=== PATIENT | female | born 1990 | race Caucasian/White ===

== ENCOUNTER 2016-09-05 08:58 | Emergency (ER) | payer OTHER ==
--- NOTE | 2016-09-05 09:16 | EDPHY ---
H & P Time Seen by Provider: 09/05/16 09:02 HPI/ROS: CHIEF COMPLAINT: Silvana HPI: The patient is a 26-year-old female with a history silvana and blindness. She presents to the emergency department on advice of her therapist. Apparently the patient recently moved to [place] and her primary psychiatrist is located in [place]. She tells me that her psychiatrist has been trying to wean her off the Geodon and this has caused her to experience worsening symptoms of silvana including inability to sleep for more than 20 minutes at a time over the last several days. She spoke to her therapist recommended that she present to the emergency department. The patient denies any thoughts of harm to self or others. She is not abusing any medication. REVIEW OF SYSTEMS: Aside from elements discussed in the HPI, a comprehensive 10-point review of systems was reviewed and is negative. PMH: Blindness. SOCIAL HISTORY: Works for [employer]. Denies alcohol or drug abuse. PHYSICAL EXAM: General:Patient is alert, in no acute distress. 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 Neck: Normal inspection. Full range of motion. Respiratory:No respiratory distress. Breath sounds normal bilaterally. Cardiovascular: Regular rate and rhythm. Strong peripheral pulses. Normal cap refill. Abdomen:The abdomen is nontender to palpation. There are no peritoneal signs. There are normal bowel sounds. Back: Normal to inspection. No tenderness to palpation. Skin: Normal color. No rash. Warm and dry. Extremities: Normal appearance. Full range of motion. Neuro: Oriented x3. Normal motor function. Normal sensory function. Psychiatric: Normal affect, pleasant. Smoking Status: Never smoked Constitutional: Initial Vital Signs Temperature (C) 36.6 C 09/05/16 09:09 Heart Rate 91 09/05/16 09:09 Respiratory Rate 20 09/05/16 09:09 Blood Pressure 134/77 H 09/05/16 09:09 O2 Sat (%) 97 09/05/16 09:09 O2 Delivery Mode Room Air Allergies/Adverse Reactions: No Known Allergies Allergy (Unverified 09/05/16 09:08) Home Medications: Medication Instructions Recorded Geodon 40MG (*) 09/05/16 Tromax 09/05/16 Xanax 09/05/16 Zofran 09/05/16 MDM/Departure - [facility] ED Course/Re-evaluation: I spoke with our case managers, Candace, who referred me to the [facility] line. I spoke with someone at the [facility] and gave them background on the patient - they have assured me that a clinician will meet the patient at that facility if we send her by cab. At this point, I do not think the patient is a danger to her self or others and she does not meet criteria for an M1 hold, so I think outpatient management would be optimal. I discussed this with the patient and she is comfortable with the plan. - Depart Disposition: Home, Routine, Self-Care Clinical Impression: Silvana Condition: Good Instructions: Additional Information Additional Instructions: Go directly to [facility] at [address] [place] [address] in [place]. Referrals: CANDICE MONTES [Other] - As per Instructions Blanca Santos MD [Medical Doctor] - As per Instructions
[2016-09-05 10:03] VITALS: BP 109/64; PULSE 88; RESP 18; TEMP 98.1; O2SAT 95
== END 2016-09-05 10:02 | disposition home or self-care (01) ==
LOC: CED 08:58
DX: F30.9 Manic episode, unspecified (principal)

== ENCOUNTER 2017-12-28 19:37 | Inpatient (IN) | payer MEDICAID, OTHER ==
--- NOTE | 2017-12-28 19:45 | EDPHY ---
H & P Stated Complaint: SI (Blind) Source: Patient - Personal History LMP (Females 10-55): 1-7 Days Ago Current Tetanus/Diphtheria Vaccine: Unsure Current Tetanus Diphtheria and Acellular Pertussis (TDAP): Unsure - Medical/Surgical History Hx Asthma: No Hx Chronic Respiratory Disease: No Hx Diabetes: No Hx Cardiac Disease: No Hx Renal Disease: No Hx Cirrhosis: No Hx Alcoholism: No Hx HIV/AIDS: No Hx Splenectomy or Spleen Trauma: No Other PMH: Depression/Bipolar/PDF/ Premature 24wks/Several eye surgerys No MRI PDF ligation - Social History Smoking Status: Never smoked Time Seen by Provider: 12/28/17 19:45 HPI/ROS: HPI CHIEF COMPLAINT: Suicidal ideation HISTORY OF PRESENT ILLNESS: This is a very pleasant 27-year-old female she is legally blind, she presents emergency room feeling further depression and suicidal the patient states that she is feeling more depressed recently. Suicidal ideation. Denies any ingestion. She presents emergency room by private vehicle. Past Medical History: Depression, previous suicidal ideation, blind Past Surgical History: No recent surgery Social History: Denies drugs alcohol tobacco Family History: Noncontributory ROS REVIEW OF SYSTEMS: 10 Systems were reviewed and negative with the exception of the elements mentioned in the history of present illness. Exam Constitutional triage nursing summary reviewed, vital signs reviewed, awake/ alert. Eyes blind. HENT normal inspection, atraumatic, moist mucus membranes, no epistaxis, neck supple/ no meningismus, no raccoon eyes. Respiratory clear to auscultation bilaterally, normal breath sounds, no respiratory distress, no wheezing. Cardiovascular rate normal, regular rhythm, no murmur, no edema, distal pulses normal. Gastrointestinal soft, non-tender, no rebound, no guarding, normal bowel sounds, no distension, no pulsatile mass. Genitourinary no CVA tenderness. Musculoskeletal no midline vertebral tenderness, full range of motion, no calf swelling, no tenderness of extremities, no meningismus, good pulses, neurovascularly intact. Skin pink, warm, & dry, no rash, skin atraumatic. Neurologic awake, alert and oriented x 3, AAOx3, moves all 4 extremities equally, motor intact, sensory intact, CN II-XII intact, normal cerebellar, normal vision, normal speech. Psychiatric depressed, flat affect, suicidal Heme/Lymph/Immune no lymphadenopathy. Differential Diagnosis: Includes but is not limited to in a particular order mood disorder, bipolar disorder, depression, suicidal ideation Medical Decision Making: Plan for this patient she is here endorsing suicidal ideation, worsening depressed and she be placed on M1 hold by myself. Patient need mental health evaluation after medical clearance. Blood draw will be obtained. Re-evaluation: 1954: Time of M1 hold. Placed by myself. Reason for placement suicidal ideation underlying depression. 2239: Patient signed over to Dr. Green, m1 hold, si, needs eval still. (Pierre Baker) Constitutional: Initial Vital Signs Temperature (C) 36.8 C 12/28/17 19:38 Heart Rate 117 H 12/28/17 19:38 Respiratory Rate 16 12/28/17 19:38 Blood Pressure 150/96 H 12/28/17 19:38 O2 Sat (%) 96 12/28/17 19:38 O2 Delivery Mode Room Air Allergies/Adverse Reactions: No Known Allergies Allergy (Unverified 09/05/16 09:08) Home Medications: Medication Instructions Recorded Geodon 40MG (*) 09/05/16 Tromax 09/05/16 Xanax 09/05/16 Zofran 09/05/16 Medical Decision Making Other Provider: [address] Baker pending mental health evaluation. 07 patient signed out to Dr. Shoemaker pending mental health evaluation. There been no issues during my care this patient overnight. (Silver Green) - Data Points Laboratory Results: Laboratory Results 12/28/17 21:00 12/28/17 21:00 12/28/17 12/28/17 12/28/17 21:30 21:00 21:00 WBC RBC Hgb Hct MCV MCH MCHC RDW Plt Count MPV Neut % (Auto) Lymph % (Auto) [place] % (Auto) Eos % (Auto) Baso % (Auto) Nucleat RBC Rel Count Absolute Neuts (auto) Absolute Lymphs (auto) Absolute Monos (auto) Absolute Eos (auto) Absolute Basos (auto) Absolute Nucleated RBC Immature Gran % Immature Gran # Sodium 137 mEq/L mEq/L (135-145) Potassium 3.6 mEq/L mEq/L (3.3-5.0) Chloride 102 mEq/L mEq/L (97-110) Carbon Dioxide 24 mEq/l mEq/l (22-31) Anion Gap 11 mEq/L mEq/L (8-16) BUN 12 mg/dL mg/dL (7-23) Creatinine 1.0 mg/dL mg/dL (0.6-1.0) Estimated GFR > 60 Glucose 85 mg/dL mg/dL (70-100) Calcium 10.6 mg/dL H mg/dL (8.5-10.4) Beta HCG, Qual NEGATIVE Urine Opiates Screen NEGATIVE (NEGATIVE) Urine Barbiturates NEGATIVE (NEGATIVE) Ur Phencyclidine Scrn NEGATIVE (NEGATIVE) Ur Amphetamine Screen NEGATIVE (NEGATIVE) U Benzodiazepines Scrn NEGATIVE (NEGATIVE) [place] 0.4 mEq/L L mEq/L (0.6-1.2) Urine Cocaine Screen NEGATIVE (NEGATIVE) U Marijuana (THC) Screen NEGATIVE (NEGATIVE) Ethyl Alcohol < 10 mg/dL mg/dL (0-10) 12/28/17 21:00 WBC 12.14 10^3/uL H 10^3/uL (3.80-9.50) RBC 4.88 10^6/uL 10^6/uL (4.18-5.33) Hgb 14.6 g/dL g/dL (12.6-16.3) Hct 42.8 % % (38.0-47.0) MCV 87.7 fL fL (81.5-99.8) MCH 29.9 pg pg (27.9-34.1) MCHC 34.1 g/dL g/dL (32.4-36.7) RDW 12.5 % % (11.5-15.2) Plt Count 311 10^3/uL 10^3/uL (150-400) MPV 9.8 fL fL (8.7-11.7) Neut % (Auto) 66.7 % % (39.3-74.2) Lymph % (Auto) 22.7 % % (15.0-45.0) [place] % (Auto) 9.0 % % (4.5-13.0) Eos % (Auto) 0.9 % % (0.6-7.6) Baso % (Auto) 0.5 % % (0.3-1.7) Nucleat RBC Rel Count 0.0 % % (0.0-0.2) Absolute Neuts (auto) 8.09 10^3/uL H 10^3/uL (1.70-6.50) Absolute Lymphs (auto) 2.76 10^3/uL 10^3/uL (1.00-3.00) Absolute Monos (auto) 1.09 10^3/uL H 10^3/uL (0.30-0.80) Absolute Eos (auto) 0.11 10^3/uL 10^3/uL (0.03-0.40) Absolute Basos (auto) 0.06 10^3/uL 10^3/uL (0.02-0.10) Absolute Nucleated RBC 0.00 10^3/uL 10^3/uL (0-0.01) Immature Gran % 0.2 % % (0.0-1.1) Immature Gran # 0.03 10^3/uL 10^3/uL (0.00-0.10) Sodium Potassium Chloride Carbon Dioxide Anion Gap BUN Creatinine Estimated GFR Glucose Calcium Beta HCG, Qual Urine Opiates Screen Urine Barbiturates Ur Phencyclidine Scrn Ur Amphetamine Screen U Benzodiazepines Scrn [place] Urine Cocaine Screen U Marijuana (THC) Screen Ethyl Alcohol Medications Given: Fluoxetine HCl (Prozac) 10 mg PO [facility] Stop: 06/27/18 00:14 Last Admin: 12/29/17 00:24 Dose: 10 mg Lamotrigine (Lamictal) 150 mg PO [facility] Stop: 06/26/18 23:44 Last Admin: 12/29/17 00:02 Dose: [address] [place] Carbonate ([place] Carbonate) 300 mg PO [facility] Stop: 06/26/18 23:44 Last Admin: 12/29/17 00:01 Dose: 300 mg Mirtazapine (Remeron) 7.5 mg PO [facility] Stop: 06/26/18 23:44 Last Admin: 12/29/17 00:01 Dose: 7.5 mg Ziprasidone (Geodon) 20 mg PO [facility] Stop: 06/26/18 23:44 Last Admin: 12/29/17 00:02 Dose: 20 mg Departure - Departure Clinical Impression: Suicidal ideation, Depression Condition: Fair Referrals: NONE *PRIMARY CARE P,. [Primary Care Provider] - As per Instructions
[2017-12-28 21:07] LABS: PLATELET COUNT 311 10^3/uL (150-400)
[2017-12-28] MEDS ORDERED: lamoTRIgine 100 MG TAB PO ONE (23:31)
[2017-12-28] MEDS ORDERED: MIRTAZAPINE 15 MG TAB PO ONE (23:32)
[2017-12-28] MEDS ORDERED: FLUoxetine 20 MG CAP PO SCH (23:45)
[2017-12-28] MEDS ORDERED: lamoTRIgine 100 MG TAB PO SCH (23:45)
[2017-12-28] MEDS ORDERED: ZIPRASIDONE HCL 20 MG CAP PO SCH (23:45)
[2017-12-28] MEDS ORDERED: LITHIUM CARBONATE 300 MG TAB PO SCH (23:45)
[2017-12-28] MEDS ORDERED: MIRTAZAPINE 15 MG TAB PO SCH (23:45)
[2017-12-29] MEDS ORDERED: FLUoxetine 10 MG CAP PO SCH (00:15)
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
--- NOTE | 2017-12-29 11:01 | ASMTTCLDSP ---
TLC Discharge Disposition Disposition: Answers: Admit Disposition Notes: Notes: Pt will be admitted to [facility] Discharge Concerns/Recommendations: Notes: In consultation with the ED MD, Dr. Shoemaker an the on-call psychiatrist, Dr. Jean Saxena, both concurred that pt appears to met 27-65 criteria requiring psychiatric in-pt hospitalization as pt appears to be at imminent risk of addis harm due to a mental illness condition. Was patient given the Answers: Yes Inpatient Behavioral Health Prohibited Belongings List while in the ED? For inpatient Jean Saxena MD admission, the following psychiatrist agreed to accept patient for admission to Behavioral Health ([facility]): Type of Hold: Answers: M1/72-hour Hold Hold initiated by: Answers: ED Physician Date Signed: 12/29/2017 11:00 AM Electronically Signed By:Marysol Luciano
--- NOTE | 2017-12-29 12:35 | GCON ---
DATE OF CONSULTATION: 12/29/2017 HISTORY OF PRESENT ILLNESS: The patient is a pleasant 27-year-old female with a history of bipolar 2 and legal blindness, who presented to the ER last evening with ongoing depression. She has passive suicidality. She was placed on an M1 hold. I am seeing her now in medical consultation. The patient denies significant medical problems. 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 She denies recent fever, chills, cough, sputum, nausea, vomiting, diarrhea. She has bee n eating and drinking well. She does not smoke cigarettes. She does not drink alcohol or use drugs. REVIEW OF SYSTEMS: Complete 10-point review of systems conducted, negative, except as noted in the H PI. PAST MEDICAL HISTORY: Born at 24 weeks, retinopathy of prematurity. She had a ligation of her PDA. ALLERGIES: Aripiprazole, olanzapine, and Quetiapine. MEDICATIONS: Alprazolam, fluoxetine, lamotrigine, lithium, lorazepam, mirtazapine, ondansetron, and ziprasidone. SOCIAL HISTORY: No tobacco, no alcohol. Legally blind. FAMILY HISTORY: Notable for cancer and heart disease. PHYSICAL EXAMINATION: VITAL SIGNS: Temp 37, blood pressure 150/96, pulse 117, now is 80, breathing 16 times a minute, 96% on room air. GENERAL: No acute distress. EYES: Sclerae anicteric. She has roving nystagmus. NECK: Supple. No lymphadenopathy or JVD. Oropharynx is clear. LUNGS: Clear t o auscultation bilaterally. HEART: S1, S2, without murmurs. ABDOMEN: Soft, nontender, nondistende d. LOWER EXTREMITIES: Without edema. Calves are nontender. Skin without rash. NEUROLOGIC: Exam i s nonfocal. LABORATORY DATA: White count 12, hematocrit 43, platelets 311,000. Chem-7 is normal. Calcium is sl ightly elevated at 10.6. Beta hCG is negative. Tox screen is notable for a lithium level of 0.4, wh ich is low, is otherwise negative. Discussed the case with Pierre Baker. ASSESSMENT/PLAN: A 27-year-old female with depression and suicidality. 1. Suicidality management per Psychiatry. 2. Tachycardia. The patient has tachycardia on presentation, which is common in these patients. Sh e is no longer tachycardic. She is euvolemic. Would follow. 3. Hypercalcemia. Again, this is likely a bit of volume depletion. Would not follow. DISPOSITION: To Psychiatry. Thank you for this consultation. Hospital Medicine will not follow. /[id number]/MODL
[2017-12-29] MEDS ORDERED: LORazepam 0.5 MG TAB PO PRN ×2 (15:38→15:44)
[2017-12-29] MEDS ORDERED: ACETAMINOPHEN 325 MG TAB PO PRN (15:38)
[2017-12-29] MEDS ORDERED: MAGNESIUM HYDROXIDE 30 ML UDCUP PO PRN (15:38)
[2017-12-29] MEDS ORDERED: OLANZapine DISINTEGR 10 MG TAB PO PRN (15:38)
[2017-12-29] MEDS ORDERED: NICOTINE POLACRILEX 2 MG GUM B PRN (15:38)
[2017-12-29] MEDS ORDERED: MAG HYDROX/AL HYDROX/SIMETH 30 ML UDCUP PO PRN (15:38)
[2017-12-29] MEDS ORDERED: ALPRAZolam 0.25 MG TAB PO PRN (15:41)
[2017-12-29] MEDS ORDERED: ONDANSETRON DISINTEGRATING 4 MG TAB PO PRN (15:41)
--- NOTE | 2017-12-29 16:40 | PDMN ---
Medical Necessity Medical necessity: [facility] B004IP Biploar Disorders, Adult: Inpatient Care and B002IP Anxiety d/o: 27 yo M1 hold for suicidal ideation, bipolar I d/o, most recent episode depressed, moderate, generalized anxiety d/o.
[2017-12-29] MEDS: lamoTRIgine 100 MG TAB PO SCH (20:44)
[2017-12-29] MEDS: MIRTAZAPINE 15 MG TAB PO SCH (20:45)
[2017-12-29] MEDS: ZIPRASIDONE HCL 20 MG CAP PO SCH (20:45)
[2017-12-29] MEDS: FLUoxetine 10 MG CAP PO SCH (20:45)
[2017-12-29] MEDS: LITHIUM CARBONATE 300 MG TAB PO SCH (20:45)
[2017-12-30] MEDS ORDERED: ALPRAZolam 0.5 MG TAB PO PRN (10:30)
--- NOTE | 2017-12-30 10:30 | ASMTBHMTP ---
Master Treatment Plan Master Treatment Plan Answers: Depressed Mood with for: Suicidal Ideation Date: 12/30/2017 Diagnosis on Admission: Bipolar I Disorder, most recent episode depressed, moderate 296.52 (F31.32) Expected length of stay: 3-5 Reason for admission: Notes: The patient stated that her reason for admission was "anxiety, a depressive episode, and a little SI." The patient reported that she contacted her friends who brought her to the ER. She stated, "I live on my own and I didn't feel comfortable...I didn't feel safe." Patient's stated presenting problems: Notes: The patient stated, "I can deal with depression and silvana but when the anxiety adds up it makes things worse." The patient reported "work and jetlag" as possible precipitants. 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 The patient reported that she is contracted for projects and that work is currently limited. She stated, "At work, I have to play normal and act like nothing is wrong when really I'm not okay." The patient visited [employer] three weeks ago for an international climbing competition; the patients was observably cheerful while discussing climbing. The patient reported that work gives her money which allows her to climb. Patient's goals for treatment: Notes: The patient would like to confirm that her medications are accurate. She recently tapered off of Remeron because she thought she was on too many medications. She reported feeling "fine for a while." Her optimal dose is 30mg, she started again on 7.5mg. The patient would like to work on "not being so hard on myself." Patient's strengths: Notes: The patient stated, "I write. I'm analytical, which can get me into trouble." Identify supports outside of hospital: Notes: The patient stated, "I have a good support system" including a poetry group, climbing peers, facebook friends, and people she can reach by text message. She stated that her family lives in [place] and [place]. The patient stated "yes and no" regarding whether her family is supportive. The patient has outpatient providers: Yelena Mills, [facility] and Karen Lorenz, therapist. Discharge criteria: Notes: Suicidal ideation will resolve and patient will have a plan to safely manage recurrent suicidal ideation. Initial disposition plan/considerations: Notes: The patient plans to return home upon discharge. She lives in alone in an apartment in [place], [place]. Master Treatment Plan Required Signatures Psychiatrist signature: Answers: Jean Saxena MD: RN on-shift signature: Answers: RN: Patient signature: Answers: Patient: Date Signed: 12/30/2017 10:30 AM Electronically Signed By:Davina Lara
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
[2017-12-30] MEDS: lamoTRIgine 100 MG TAB PO SCH (21:23)
[2017-12-30] MEDS: ZIPRASIDONE HCL 20 MG CAP PO SCH (21:24)
[2017-12-30] MEDS: FLUoxetine 10 MG CAP PO SCH (21:24)
[2017-12-30] MEDS: MIRTAZAPINE 15 MG TAB PO SCH (21:24)
[2017-12-30] MEDS: LITHIUM CARBONATE 300 MG TAB PO SCH (21:24)
[2017-12-31] MEDS ORDERED: MIRTAZAPINE 15 MG TAB PO SCH (11:06)
[2017-12-31] MEDS ORDERED: lamoTRIgine 100 MG TAB PO SCH (11:06)
--- NOTE | 2017-12-31 11:46 | SOAPPROG ---
SOAP Progress Note Assessment/Plan: Assessment: Bipolar II Disorder, currently depressed with anxious distress. Slight improvement noted. (see subjective/objective note). Patient is not safe to discharge at this time as patient continues to express depression symptoms and recent suicidal ideation. Patient requires continued inpatient care because of current depression, and requires inpatient level of care to stabilize in order to no longer be a danger to herself. Patient could benefit from continued inpatient hospitalization for crisis stabilization, safety, and medication evaluation. Plan: (1) Psychotropic medications: After reviewing options, risks, and benefits patient agrees to continue current medications with following changes: discontinue lithium, Prozac, and Geodon; increase Lamictal to 200 mg po QHS and increase Remeron to 15 mg po QHS. No other medication changes at this time as more time is needed to determine ongoing tolerability and efficacy. Plan is to continue to observe patient for response and side effects from medications, and ongoing monitoring and evaluation. (2) Review with patient informed consent and recommendations for psychotropic medication treatment listed below (3) Labs: A1c, lipid panel, liver function test, TSH (4) Therapy: continue milieu and group therapy (5) Further investigation including gathering information from patients relatives and review of past case records to inform treatment plan. (6) Safety/Wellness plan and follow-up outpatient appointments to be established prior to discharge. Next steps are for patient to meet with career guidance technician to plan a safe discharge plan and establish outpatient services for ongoing treatment. (7) Confer with inpatient treatment team regarding treatment plan. (8) Legal status: M1, agrees to voluntary (9) Consider discharge on Sunday if patient is in stable condition, safe, and has a safe discharge plan. PSYCHOTROPIC MEDICATION TREATMENT INFORMED CONSENT and RECOMMENDATIONS: Review nature of condition, diagnosis, and prognosis. Review nature and purpose of psychotropic medication treatment. Review type of psychotropic medications being ordered. Review risk and benefits of psychotropic medication treatment. Review probable length of time patient will need to take medications. Review risk and benefits of not undergoing psychotropic medication treatment. Review alternative treatments to psychotropic medications. Review psychotropic medications contraindications, drug-drug interactions, side effects, and importance of reporting any side effects to a psychiatric provider or nurse during inpatient hospitalization, and upon discharge to patients psychiatric outpatient provider, primary care provider, or other health mall plant caretaker. Review importance of asking a nurse, psychiatric provider, or primary care provider any questions or problems concerning the psychotropic medications. Verify patient understands the information that has been provided, and understands, accepts, and agrees to psychotropic medications. Review patients safety plan and importance of patient to report to staff while hospitalized if patient is ever a danger to self/others, or unable to care for self, and upon discharge, the importance for patient to contact [facility] or [facility], or go to the nearest emergency room, if patient is ever a danger to self/others, or unable to care for self. Recommend that upon discharge patient establish medication management treatment with a psychiatric provider, establishes routine therapy appointments, and follow-up with primary care provider. Verify patient understands and agrees to these recommendations. 12/31/17 11:44 Subjective: Following up with patient for evaluation of depression, anxiety, and safety. Patient reports, "Feeling okay, would like to adjust my medications so I am not taking so many different ones." Patient expresses the following psychiatric symptoms moderate depression and anxiety. Patient reports taking medications as prescribed, and describes response to medications as fair. Patient does not report undesirable side effects from the medications, and agrees to discontinue lithium, Prozac, and Geodon; increase Lamictal to 200 mg po QHS and increase Remeron to 15 mg po QHS. Patient reports appetite as good, and reports eating all meals. Patient describes getting 8 hours of sleep. Objective: Vital Signs Temp Pulse Resp BP Pulse Ox 36.3 C 90 15 102/65 97 12/30/17 06:00 12/31/17 06:00 12/31/17 06:00 12/31/17 06:00 12/31/17 06:00 NURSING REPORT: Consulted with nursing for update on patients progress in treatment. Nurses report patient is engaged in treatment, is attending groups, slept 8 hours, expresses the following psychiatric symptoms: moderate depression and anxiety, exhibits the following psychiatric symptoms: flat affect , depressed; is eating all meals, is agreeable to medications and taking as prescribed with no report of side effects, with no s/s of EPS/akathisia, and denies SI/HI, denies A/V hallucinations, and denies delusions. WEEKEND UPDATE: patient expresses interest in medication adjustment. Incongruent mood/affect. Affect is bright with report of depressed mood. Passive SI for several days. TREATMENT TEAM MEETING: Patient met with treatment team to review treatment plan and goals for hospitalization. MSE: The patient presents casually dressed and with good hygiene, and looks stated age. Patient is sitting, posture is upright, and position is relaxed. Patient appears awake, alert, and responds appropriately and reasonably during interview. Patient is engaged, relates well to interviewer, and emotional facial expression is appropriate to situation and changes appropriately with topic. Patient is cooperative, and movements are voluntary, deliberate, coordinated, and smooth and even with no inappropriate movements. Patient uses white cane to assist with walking due to being blind. Patient makes laryngeal sounds effortlessly and shares conversation appropriately; pace of conversation is appropriate, and stream of talking is fluent; articulation is clear and understandable; word choice is effortless and appropriate for education level; completes sentences, occasionally pausing to think; rate and volume are appropriate for interview and setting. Patient reports mood as depressed and anxious. Patients affect is stable with full variable range, incongruent with mood, and appropriate to speech and circumstances. Patient has linear and logical thinking, with no loose associations, tangential thought, thought blocking, concrete thinking, or any other signs of formal thought disorder. Patient denies homicidal ideation, and denies hallucinations and delusions. Patient reports passive thoughts of suicide. Patient appears to be a poor historian with fair judgement and fair insight into current condition. Patient has no apparent dysfunction in recent or remote memory noted, and no evidence of gross cognitive dysfunction noted at any point during the interview. - Time Spent With Patient Time Spent With Patient: 25 minutes, met with patient individually and patient met with treatment team. - Pending Discharge Pending Discharge Within 24 Hours: No Pending Discharge Within 48 Hours: No ICD10 Worksheet Patient Problems: Problems Problem Status Onset Depression Acute Suicidal ideation Acute
--- NOTE | 2017-12-31 12:01 | ASMTCMCOM ---
CM Note CM Note Notes: The patient signed in to treatment on a voluntary basis. She reported that her suicidal ideation is "complicated." She stated, "I know people love me but I still have these thoughts and they scare me." The patient reported mild sleep disturbances including anxiety upon waking up and waking up through out the night due to anxiety. She also reported that her appetite is impacted by anxiety; she is hungry but is not interested in any particular foods or eating. The patient spoke with her outpatient therapist on Sunday. Date Signed: 12/31/2017 12:01 PM Electronically Signed By:Davina Lara
[2018-01-01 06:45] VITALS: BP 121/63
--- NOTE | 2018-01-01 08:40 | ASMTBHDC ---
Notes Note: Notes: CC was unable to confirm follow up appts: Follow up with: Yelena Mills HYBRID TECHNOLOGIST: [address] [facility], [address], [place] [address] [phone] Karen Lorenz: Therapy Due to short stay CC was unable to confirm follow up appts; client and provider are comfortable allowing for client to follow up with her out-patient care team CC provided work excuse for client, etc.* Date Signed: 01/01/2018 08:39 AM Electronically Signed By:Odell Bolanos
--- NOTE | 2018-01-01 14:38 | BDS ---
REASON FOR ADMISSION: From the ED note dated 12/28/2017, the patient presented to the emergency room with increased depression and suicidal ideation. Reported feeling more depressed recently. The patient presented to the emergency room by private vehicle. The patient was admitted involuntarily on an M1 hold due to being a danger to herself. The patient was admitted for safety, crisis stabilization, and medication evaluation. ADMITTING DIAGNOSES: Bipolar II disorder, severe, depressed, with anxious distress. ADMISSION PHYSICAL EXAM: The patient was seen on 12/29/2017, for an internal medicine consultation for medical clearance for inpatient Behavioral Health stay. The patient was medically cleared for inpatient Behavioral Health hospitalization and treatment. For further details, please refer to consultation note dated 12/29/2017. ADMISSION LABS: CBC from 12/28/2017, within normal limits, except white blood cells were elevated at 12.14; absolute neutrophils were elevated at 8.09; and absolute monocytes were elevated at 1.09. BMP from 12/28/2017, within normal limits. Hemoglobin A1c from 12/31/2017 was 5.1. Calcium was elevated at 10.6. Liver function from 12/31/2017, was within normal limits. Fasting lipid panel from 12/31/2017 was within normal limits, except LDL cholesterol calculated was elevated at 129, and non-HDL cholesterol was elevated at 149. Beta hCG qualitative test from 12/28/2017 was negative. Toxicology screen from 12/28/2017 was negative for substances screened. [place] from 12/28/2017, plasma level was 0.4 and subtherapeutic. MAJOR PROCEDURES OR TESTS: None. HOSPITAL COURSE: The most prominent symptoms and behaviors while the patient was here were moderate anxiety and depression. Treatment modalities utilized were milieu and group therapy. The patient requested medication evaluation and adjustment. The patient stated at time of admission that she would like to be on less medications. After reviewing options, risks and benefits, the patient agreed to discontinue lithium 300 mg p.o. daily. The patient agreed to discontinue Geodon 20 mg p.o. daily. The patient agreed to discontinue Prozac 10 mg p.o. daily, and patient agreed to titrate Lamictal to 200 mg p.o. daily. The patient reported that she had been currently prescribed 150 mg p.o. daily and had been at this dose for several months. The patient tolerated medication changes with no report of side effects and with good response. The patient has improved considerably, with no signs of psychiatric symptoms and no psychiatric symptoms expressed at discharge. The patient reports she has improved since admission, states to be in stable condition, feels safe to discharge, and she contracts for safety. Patient's response to treatment was good. There were no adverse or unexpected results of treatment. The patient was safe throughout her stay, active in treatment, attended and engaged in groups, and was appropriate with staff. The patient met with the treatment team prior to discharge to assess readiness to discharge and review discharge plan. The treatment team consensus is the patient is in stable condition, has a safe discharge plan, and is ready to discharge today. CONDITION ON DISCHARGE: Patient is in stable condition and is no longer a danger to self or others, and is not gravely disabled due to mental illness. Patient is no longer in need of inpatient level of care, and can be safely and effectively treated within the community. The patients level of risk at time of discharge is low. MSE: The patient is casually dressed and with good hygiene , and looks stated age. Patient is sitting, posture is upright, and position is relaxed. Patient appears awake, alert, and responds appropriately and reasonably during interview. Patient is engaged, relates well to interviewer, and emotional facial expression is appropriate to situation and changes appropriately with topic. Patient is cooperative, makes comfortable eye contact , and movements are voluntary, deliberate, coordinated, and smooth and even with no inappropriate movements. Patient makes laryngeal sounds effortlessly and shares conversation appropriately; pace of conversation is appropriate, and stream of talking is fluent; articulation is clear and understandable; word choice is effortless and appropriate for education level; completes sentences, occasionally pausing to think; rate and volume are appropriate for interview and setting. Patient reports mood as euthymic. Patients affect is stable with full variable range, congruent with mood, and appropriate to speech and circumstances. Patient has linear and logical thinking, with no loose associations, tangential thought, thought blocking, concrete thinking, or any other signs of formal thought disorder. Patient denies suicidal and homicidal ideation, and denies hallucinations and delusions. Patient appears to be a reliable historian with sound judgement and good insight into current condition. Patient has no apparent dysfunction in recent or remote memory noted , and no evidence of gross cognitive dysfunction noted at any point during the interview. DISCHARGE DIAGNOSES: Bipolar II disorder, severe, depressed, with anxious distress. CURRENT MEDICATIONS: After reviewing options, risks and benefits, the patient agrees to continue Lamictal 200 mg p.o. daily, Zofran 4 mg p.o. q.4 hours p.r.n. , Remeron 15 mg p.o. q.h.s. At time of discharge, patient requests a prescription for Lamictal 200 mg p.o. daily, and the patient reports she has prescriptions for her other medications. The patient's prescriptions and medications are reviewed at time of discharge to ensure accuracy and patient understanding. The patient is provided a 30-day prescription for Lamictal 200 mg p.o. daily. DISPOSITION: The patient left the hospital independently and voluntarily and plans to go to her friend's home in [place]. Patient plans to stay with her friend for a few days before returning to her home in [place], [place]. FOLLOWUP: infection prevention coordinator reports the appropriate outpatient follow-up services have been established and outpatient appointments have been scheduled. The patient received written instructions with times and dates of outpatient follow-up appointments. The following follow-up recommendations were provided to the patient at discharge: Continue psychotropic medications as prescribed and attend appointments as scheduled. Report any side effects to a psychiatric outpatient provider, a primary care provider, or other health care asst. Address any questions or problems concerning the psychotropic medications with a psychiatric outpatient provider, a primary care provider, or other health care asst. Contact [facility] or [facility], or go to the nearest emergency room, if you are ever a danger to yourself/others, or unable to care for yourself. As soon as possible, establish a routine medication management treatment with a psychiatric provider, establish routine therapy appointments, and follow-up with a primary care provider. LEGAL COURSE: The patient was admitted on an M1 hold for involuntary inpatient psychiatric hospitalization. Patient discharged today independently and voluntarily. ATTITUDE AT TIME OF DISCHARGE: The patients attitude was positive at time of discharge, and patient reports looking forward to discharging today. The patient reports she feels safe to discharge, is no longer a danger to herself or others, is in stable condition, and contracts for safety. Patient states she will continue medications as prescribed, and establish medication management treatment with an outpatient provider after discharge. Patient reports she understands the information that has been provided to her, and she understands, accepts, and agrees to psychotropic medications. Patient describes internal protective factors as the coping skills she has learned while hospitalized here, and she plans to continue to practice these coping skills after discharge. LABS AND STUDIES: There were no pending labs or studies at time of discharge. ADVANCE DIRECTIVES: There were no advance directives on file, and the patient was full code during this hospitalization. The following psychotropic medication treatment informed consent and recommendations were provided to the patient at time of discharge. Patient reports she understands, accepts, and agrees to the information that has been provided. PSYCHOTROPIC MEDICATION TREATMENT INFORMED CONSENT and RECOMMENDATIONS: Review nature of condition, diagnosis, and prognosis. Review nature and purpose of psychotropic medication treatment. Review type of psychotropic medications being prescribed. Review risk and benefits of psychotropic medication treatment. Review probable length of time will need to take medications. Review risk and benefits of not undergoing psychotropic medication treatment. Review alternative treatments to psychotropic medications. Review psychotropic medications contraindications, side effects, and importance of reporting any side effects to a psychiatric provider, primary care provider, or other health care asst. Review importance of her asking a psychiatric provider or primary care provider any questions or problems concerning the psychotropic medications. Review importance of reporting to a psychiatric provider, primary care provider, or other health care asst if she plans to or becomes . Review safety plan and the importance to contact [facility] or [facility] , or go to the nearest emergency room, if ever a danger to yourself/others, or unable to care for yourself. Recommend upon discharge to establish routine medication management treatment with a psychiatric provider, establish routine therapy appointments, and follow-up with a primary care provider. Verify patient understands, accepts, and agrees to the information that has been provided. /[id number]/MODL MTDD
== END 2018-01-01 11:22 | disposition home or self-care (01) | DRG 885 ==
LOC: BBEH 12-29 13:25
PROVIDERS: ADMIT Psychiatry & Neurology Psychiatry; ATTEND Psychiatry & Neurology Psychiatry
DX: F31.81 Bipolar II disorder (principal); F41.9 Anxiety disorder, unspecified; H54.8 Legal blindness, as defined in USA; Z23 Encounter for immunization; E86.9 Volume depletion, unspecified; E83.52 Hypercalcemia; Z72.89 Other problems related to lifestyle; F12.90 Cannabis use, unspecified, uncomplicated
CPT/HCPCS: 80305; G0008; G0480